=== PATIENT | male | born 1970 ===

== ENCOUNTER 2017-07-16 03:48 | Emergency (ER) | payer SELFPAY ==
[~2017-07-16] VITALS: Ht 162.6 cm; Wt 79.5 kg
[2017-07-16 03:50] VITALS: Ht 162.6 cm; Wt 79.5 kg
[2017-07-16] MEDS ORDERED: AZITHROMYCIN 250 MG TAB PO ONE (07:30)
[2017-07-16] MEDS ORDERED: CEFTRIAXONE 250 MG INJ IM ONE (07:30)
[2017-07-16 07:43] LABS: URINE BLOOD (Dip) POC Negative (NEGATIVE)
[2017-07-16] MEDS ORDERED: CIPR500T4 PO (08:04)
[2017-07-16 08:35] VITALS: BP 143/78; PULSE 74; RESP 16; TEMP 98.3
--- NOTE | 2017-07-17 12:29 | ERD ---
ER Documentation Chief Complaint Date/Time DATE: 07/17/17 TIME: 12:22 Chief Complaint redness and draining to penis since friday HPI 47-year-old male present ED with penile discharge 4 days. The discharge is white, mucous-like. Patient had recently had intercourse with his new partner. The partner is asymptomatic. Denies penile or scrotal pain. Denies dysuria. Denies fever or chills. Denies skin lesions. ROS All systems reviewed and are negative except as per history of present illness. 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 07/16/17 Allergies Allergies: Coded Allergies: No Known Allergy (Unverified , 07/16/17) PMhx/Soc Medical and Surgical Hx: pt denies Medical Hx, pt denies Surgical Hx Hx Alcohol Use: No Hx Substance Use: No Hx Tobacco Use: No Smoking Status: Never smoker Physical Exam Vitals Vital Signs Date Time Temp Pulse Resp B/P Pulse Ox O2 Delivery O2 Flow Rate FiO2 07/16/17 08:35 98.3 74 16 143/78 99 Room Air 07/16/17 03:50 98.3 89 16 154/94 97 Physical Exam General: Well-developed, well-nourished, conscious and coherent, in no distress Skin: Warm and dry without rash, good texture and turgor Head: Normocephalic without evidence of trauma Eyes: Sclera and conjunctivae normal; pupils equal, round, and reactive to light; extraocular movements are intact Neck: Supple without meningismus or adenopathy. Carotids are equal. Trachea midline. No bruits or JVD Chest: Normal AP diameter. Good expansion without retractions. Nontender. Lungs are clear to auscultate bilaterally with good tidal volume Heart: Regular rate and rhythm. No murmur, rub, or gallops heard Abdomen: Soft and nontender without masses, guarding, or rebound. Bowel sounds are active. No hepatosplenomegaly Back: Without spinal or CVA tenderness Pelvis: Nontender to palpation and stable to compression : Uncircumsized male. Penis normal, copious of yellow/white discharge noted. Normal scrotum, no mass noted. No inguinal hernia. Extremities: Full range of motion. Good strength bilaterally. No clubbing, cyanosis, or edema. Peripheral pulses are intact. Sensation intact Neuro: Alert and oriented 4, GCS 15. Cranial nerves grossly intact. Motor and sensory exams nonfocal. Moves all extremities. Speech clear. Gait normal Results 24 hrs Laboratory Tests Test 07/16/17 07:50 Bedside Urine pH (LAB) 6.0 Bedside Urine Protein (LAB) 1+ Bedside Urine Glucose (UA) Negative Bedside Urine Ketones (LAB) Negative Bedside Urine Blood Negative Bedside Urine Nitrite (LAB) Negative Bedside Urine Leukocyte Esterase (L 2+ Current Medications Medications (Trade) Dose Ordered Sig/Sindhu Route PRN Reason Start Time Stop Time Status Last Admin Dose Admin Azithromycin (Zithromax) 1,000 mg ONCE ONCE PO 07/16/17 07:30 07/16/17 07:31 DC 07/16/17 07:48 Ceftriaxone Sodium (Rocephin) 250 mg ONCE ONCE IM 07/16/17 07:30 07/16/17 07:31 DC 07/16/17 07:48 Procedures/MDM Well-appearing 47-year-old male present ED with penile discharge after recent intercourse. This is highly suspicious of gonorrhea or chlamydia infection. Patient is given azithromycin 1 g p.o. and Rocephin 250 mg IM in the ED. His partner was also seen at the same time and treated today. The urine sent out for chlamydia and gonorrhea testing, results pending. Urine dip showed 2+ leukocyte, negative nitrite. Highly suspicious for urinary tract infection as well. Patient is given prescription of Cipro for home. Patient appears well, stable for discharge and outpatient management. Medical decision making shared with patient and family. Education provided to patient and family. Patient and family expressed understanding of the plan. Medications on discharge: Cipro. Follow-up: Primary care provider in 2-3 days or return to ED if worse. Disclaimer: Inadvertent spelling and grammatical errors are likely due to EHR/ dictation software use and do not reflect on the overall quality of patient care. Also, please note that the electronic time recorded on this note does not necessarily reflect the actual time of the patient encounter. Departure Diagnosis: Primary Impression: UTI (urinary tract infection) Additional Impression: STI (sexually transmitted infection) Condition: Stable Patient Instructions: What Are Sexually Transmitted Diseases (STDs)?, Urinary Tract Infections in Men Referrals: [facility] Hours: 8:00 am - 5:00 pm [facility] Usted se calloway hecho un examen mdico de control que le indica que no est en corina condicin que requiera tratamiento urgente en el Departamento de Emergencia. Un estudio ms profundo y el tratamiento de lomax condicin pueden esperar sin ningn riesgo hasta que usted sea atendida/o en el consultorio de lomax mdico o corina cl lizzie. Es responsabilidad suya arreglar corina donny para el seguimiento del adeline. MANEJO DE CONDICIONES NO URGENTES EN EL FUTURO 1) Si usted tiene un mdico de atencin primaria: Usted debera llamar a lomax mdico de atencin primaria antes de venir al departamento de emergencia. Despus de las horas de consultorio, lomax doctor o lomax asociado/a est disponible por telfono. El mdico o enfermero de jamie en el servicio telefnico puede asesorarle por vielka medio para atender el problema, o adeline contrario se puede programar corina donny. 2) Si usted no tiene un mdico de atencin primaria: Llame al mdico o clnica de referencia que aparece abajo nissa las horas de consultorio para hacer corina donny para que le vean. CLINICAS: [facility] [phone] [facility] [phone] [facility] [phone] [facility]. [facility] [phone] [facility]. [place] [phone] [facility]. [phone] [address] Additional Instructions: Llame al doctor MAANA y vania corina DONNY PARA DENTRO DE 2-3 HORTON.Dgale a la secretaria que nosotros le instruimos hacer esta donny.Avise o llame si lomax condicin se empeora antes de la donny. Regresa aqui si peor o no mejor. LISA ESPINAL. LINETTE Jul 17, 2017 12:29
== END 2017-07-16 08:36 | disposition home or self-care (01) ==
LOC: FTE 03:48
DX: N39.0 Urinary tract infection, site not specified (principal); A56.8 Sexually transmitted chlamydial infection of other sites
CPT/HCPCS: 81003; 87591; 96372; 99284; J0696